=== PATIENT | female | born 1970 | race African-American/Black ===

== ENCOUNTER 2019-05-08 17:49 | Emergency (ER) | payer SELFPAY ==
--- NOTE | 2019-05-08 18:10 | RAD ---
XR Ankle Lt 3 View STANDARD HISTORY: Left ankle pain COMPARISON: None. FINDINGS: There is soft tissue swelling around the ankle. There is no underlying fracture or joint ef fusion. There is a spur at the Achilles tendon insertion. IMPRESSION: No acute changes.
[2019-05-08] MEDS ORDERED: HYDROcodone/Acetaminophen 10/325 mg Tablet ONE (20:14)
--- NOTE | 2019-05-08 20:37 | RAD ---
XR Chest 1 View Portable HISTORY: Syncopal episode COMPARISON: None. FINDINGS: Heart size is within normal limits considering the portable technique with atherosclerotic changes of the aorta. The lungs are clear of infiltrates. Scoliotic change to the spine is noted. IMPRESSION: Borderline heart size. No active intrathoracic disease.
--- NOTE | 2019-05-08 20:38 | RAD ---
XR Foot Lt 3 View STANDARD HISTORY: Plantar foot pain COMPARISON: None. FINDINGS: There are no signs of fracture. A calcaneal spur at the insertion of the Achilles tendon is noted. Suggestion of some slight soft tissue swelling on the dorsum of the foot. IMPRESSION: No acute bony changes.
--- NOTE | 2019-05-08 20:39 | RAD ---
XR Knee Lt 4 View STANDARD HISTORY: Knee pain COMPARISON: None. FINDINGS: There are no signs of fracture, dislocation or joint effusion. No other findings. IMPRESSION: Unremarkable left knee.
[2019-05-08 20:51] LABS: #Basophils 0.1 thou/uL (0.0-0.2); #Eosinphils 0.3 thou/uL (0.0-0.7); #Lymphocytes 2.5 thou/uL (1.20-3.40); #Monocytes 0.6 thou/uL (0.11-0.59); #Neutrophils 3.8 thou/uL (1.40-6.50); %Basophils 0.8 % (0.0-1.0); %Eosinophils 3.9 % (0.0-10.0); %Lymphocytes 34.2 % (21.0-51.0); %Monocytes 7.9 % (0.0-10.0); %Neutrophils 53.1 % (42.0-75.0); Hemoglobin 11.9 g/dL (12.0-16.0); Mean Corpuscular Hemoglobin 26.8 pg (27.0-31.0); Mean Corpuscular Volume 83.8 fL (78.0-98.0); Mean Platelet Volume 8.2 fL (7.4-10.4); Platelet Count 176 thou/uL (130-400); RBC Distribution Width 13.7 % (11.5-14.5); Red Blood Cell (RBC) Count 4.43 mill/uL (4.20-5.40); White Blood Cell (WBC) Count 7.2 thou/uL (4.8-10.8)
[2019-05-08 21:17] LABS: ALT (SGPT) 15 U/L (8-55); AST (SGOT) 17 U/L (5-34); Albumin 4.1 g/dL (3.5-5.0); Alkaline Phosphatase 85 U/L (40-150); Anion Gap 12 mmol/L (10-20); BUN (Urea Nitrogen) 11 mg/dL (7.0-18.7); Bilirubin, Total 0.4 mg/dL (0.2-1.2); Calc. Creatinine Clearance 0 mL/min (70-130); Calcium 9.8 mg/dL (7.8-10.44); Carbon Dioxide 25 mmol/L (22-29); Chloride 106 mmol/L (98-107); Estimated GFR-MDRD Greater than 90; Globulin 3.7 g/dL (2.4-3.5); Glucose 94 mg/dL (70-105); Potassium 4.4 mmol/L (3.5-5.1); Protein, Total 7.8 g/dL (6.0-8.3); Sodium 139 mmol/L (136-145)
--- NOTE | 2019-05-13 10:27 | EKG ---
Test Reason : Blood Pressure : / mmHG Vent. Rate : 077 BPM Atrial Rate : 077 BPM P-R Int : 140 ms QRS Dur : 068 ms QT Int : 378 ms P-R-T Axes : 025 040 024 degrees QTc Int : 427 ms Normal sinus rhythm Normal ECG Confirmed by JEANNETTE NICHOLE DO ([id number]), publications editor NILE GILES ([id number] on 05/13/2019 10:26:56 AM Referred By: Confirmed By:JEANNETTE NICHOLE DO
== END 2019-05-08 21:51 | disposition home or self-care (01) ==
LOC: ERS 17:49
DX: S93.402A Sprain of unspecified ligament of left ankle, initial encounter (principal); R55 Syncope and collapse; W10.9XXA Fall (on) (from) unspecified stairs and steps, initial encounter
CPT/HCPCS: 36415; 71045; 80053; 84484; 85025; 93005

== ENCOUNTER 2019-11-16 15:38 | Outpatient (CLI) | payer OTHER ==
--- NOTE | 2019-11-16 16:15 | ULT ---
Renal ultrasound: 11/16/2019 COMPARISON:None available HISTORY:Calculus of kidney TECHNIQUE: Multiplanar grayscale sonographic imaging of the kidneys and urinary bladder obtained. FINDINGS: The right kidney [id number] x 7.1 x 4.7 cm and demonstratesa cyst in the upper pole regio n measuring 3.1 x 3.0 x 2.7 cm. No hydronephrosis or discrete renal stone. The left kidney hajfqyok89.8 x 7.1 x 4.9 cm and demonstratesno stone, hydronephrosis, or mass. The urinary bladderappears grossly unremarkable. IMPRESSION:Right renal cyst. No discrete renal stone disease. Evaluation for stone disease could be b daisy performed via KUB or CT examination.
== END 2019-11-16 15:39 | disposition home or self-care (01) ==
LOC: BICULT 15:38
PROVIDERS: ATTEND Urology
DX: N20.0 Calculus of kidney (principal); N28.1 Cyst of kidney, acquired
CPT/HCPCS: 76770